=== PATIENT | male | born 1980 | race Caucasian/White ===

== ENCOUNTER 2024-01-22 00:59 | Emergency (ER) | payer OTHER ==
[~2024-01-22] VITALS: Wt 113.4 kg
[2024-01-22] MEDS ORDERED: AMLODIPINE BESYL5 MG PO (01:06)
[2024-01-22] MEDS ORDERED: PREDNISONE20 M1 PO (01:14)
[2024-01-22] MEDS ORDERED: diphenhydrAMINE hydrochloride 25 MG CAP PO ONE (01:15)
[2024-01-22] MEDS ORDERED: methylPREDNISolone sod succ 125 MG VIAL IM ONE (01:15)
== END 2024-01-22 02:05 | disposition home or self-care (01) ==
LOC: ED 00:59
DX: L23.7 Allergic contact dermatitis due to plants, except food (principal); Z91.040 Latex allergy status